=== PATIENT | female | born 1980 | race African-American/Black ===

== ENCOUNTER 2016-11-18 21:46 | Emergency (ER) | payer SELFPAY ==
[~2016-11-18] VITALS: Ht 162.6 cm; Wt 98.0 kg
[2016-11-18 22:05] VITALS: BP 121/59
== END 2016-11-18 23:30 | disposition left against medical advice (07) ==
LOC: ER 21:46
DX: Z53.21 Procedure and treatment not carried out due to patient leaving prior to being seen by health care provider (principal)

== ENCOUNTER 2016-11-19 03:29 | Emergency (ER) | payer OTHER ==
[~2016-11-19] VITALS: Ht 162.6 cm; Wt 98.0 kg
[2016-11-19] MEDS ORDERED: MORPHINE SULFATE 4 MG/ML CPJ (NOT FOR IM USE) IV ONE (04:45)
[2016-11-19 05:12] LABS: BASOPHILS % 0.1 % (0.0-2.0); CLARITY URINE CLEAR (CLEAR); COLOR URINE YELLOW (YELLOW); DIFFERENTIAL COMMENT 0; EOSINOPHILS % 0.4 % (0.0-5.0); GLUCOSE URINE NEGATIVE (NEGATIVE); HEMATOCRIT. 35.2 % (36.0-48.0); HEMOGLOBIN. 10.9 g/dL (12.0-16.0); KETONES URINE TRACE (NEGATIVE); LEUKOCYTE ESTERASE URINE NEGATIVE (NEGATIVE); LYMPHOCYTES % 19.5 % (20.0-50.0); MEAN CORPUSCULAR HGB CONC 30.9 g/dL (31.0-37.0); MEAN PLATELET VOLUME 8.3 fl (7.4-10.4); MONOCYTES % 6.2 % (2.0-8.0); NEUTROPHILS % 73.8 % (40.0-76.0); NITRITE URINE NEGATIVE (NEGATIVE); OCCULT BLOOD URINE 3+ (NEGATIVE); PH URINE 6.5 (4.5-8.0); PLATELET 361 x1000/uL (130-400); PROTEIN URINE TRACE (NEGATIVE); RED BLOOD CELL COUNT 4.95 mill/uL (4.2-5.4); RED CELL DISTRIBUTION WIDTH 18.3 % (11.6-14.6); SPECIFIC GRAVITY URINE 1.029 (1.005-1.030); WHITE BLOOD COUNT 9.7 x1000/uL (4.5-11.0)
[2016-11-19] MEDS ORDERED: VANCOMYCIN 1 G PREMIX 200 ML IV SCH (05:15)
[2016-11-19] MEDS ORDERED: CEFAZOLIN 1000MG PREMIX 50 ML IV ONE (05:15)
[2016-11-19 05:17] LABS: INR 1.1; PROTHROMBIN TIME 10.9 sec
[2016-11-19 05:26] LABS: ALANINE AMINOTRANSFERASE 11 IU/L (13-61); ALBUMIN 3.8 g/dL (3.4-5.0); ANION GAP 15; CALCIUM 9.3 mg/dL (8.5-10.1); CARBON DIOXIDE 24 mEq/L (21-32); CHLORIDE 104 mEq/L (98-107); INDEX HEMOLYSI 1 (1-3); INDEX ICTERIC 1 (1-4); INDEX LIPEMIC 1 (1-3); UREA NITROGEN BLOOD 8 mg/dL (7-21); eGFR > 60 mL/min (>60)
[2016-11-19] MEDS ORDERED: LIDOCAINE HCL 1% 20ML VIAL (Pyxis) INJ MC ONE (06:45)
[2016-11-19] MEDS ORDERED: BACITRACIN ZINC OINT UDPKT TOP ONE (06:45)
[2016-11-19] MEDS ORDERED: TETANUS, DIPHTHERIA, PERTUSSIS VAC/PF 0.5ML (>7YR OLD) IM ONE (06:45)
[2016-11-19 07:04] LABS: SQUAMOUS EPITHELIAL CELL URINE FEW /lpf (RARE/1+)
[2016-11-19 07:05] LABS: BACTERIA URINE NONE SEEN; RBC URINE 50-100 /hpf (0-2); WBC URINE 0-2 /hpf (0-2)
[2016-11-19 07:22] VITALS: BP 122/75
== END 2016-11-19 12:01 | disposition home or self-care (01) ==
LOC: ER 03:30
DX: N61.1 Abscess of the breast and nipple (principal)
CPT/HCPCS: 10060; 36415; 80053; 81001; 81025; 83605; 85025; 85610; 87040; 90471; 90715; 96365; 96375; 99284; J0690; J2270; J3370; J3490; X7700; Z7610

== ENCOUNTER 2016-11-23 05:17 | Emergency (ER) | payer OTHER ==
[~2016-11-23] VITALS: Ht 162.6 cm; Wt 95.5 kg
[2016-11-23 06:11] VITALS: BP 121/72
[2016-11-23] MEDS ORDERED: ACETAMINOPHEN 500MG TABLET PO ONE (06:45)
[2016-11-23] MEDS ORDERED: KETOROLAC 60MG/2ML VIAL IM ONE (06:45)
== END 2016-11-23 08:25 | disposition home or self-care (01) ==
LOC: ER 05:17
DX: Z48.01 Encounter for change or removal of surgical wound dressing (principal); F17.210 Nicotine dependence, cigarettes, uncomplicated; F12.10 Cannabis abuse, uncomplicated; Z91.040 Latex allergy status
CPT/HCPCS: 81025; 99283; Z7610